=== PATIENT | male | born 1980 | race Caucasian/White ===

== ENCOUNTER 2016-10-02 11:33 | Emergency (ER) | payer OTHER ==
[~2016-10-02] VITALS: Ht 180.3 cm; Wt 81.6 kg
[~2016-10-02 11:33] MED LIST: CIPRO500 M1 PO; CIPROFLOXACIN500 M2 PO; FLAGYL500 MG PO; HYDROMORPHONE HC2 M1 PO; PREDNISONE10 M2 PO
--- NOTE | 2016-10-02 12:33 | ED SKIN/ALLERGY COMPLAINT ---
History of Present Illness General Chief Complaint: General Adult Stated Complaint: BIBA ?ALLERGIC REACTION TO REMECADE Source: patient Exam Limitations: no limitations Allergies Coded Allergies: infliximab (From REMICADE) (Severe, DIFFICULTY BREATHING, HIVES, RASH, FACIAL SWELLING 10/02/16) Reconcile Medications Ciprofloxacin HCl 500 MG TABLET 1 TAB PO BID Crohn's Methylprednisolone. (Medrol) 4 MG TAB.DS.PK 1 DP PO AD ALLERGY 6 on day 1 then reduce by one tablet daily until gone Metronidazole (Flagyl) 500 MG TABLET 1 TAB PO BID Crohn's Triage Note: [facility] FOR ALLERGIC REACTION TO REMICADE. PT RECEIVED REMICADE TREATMENT LAST WEEK AND 4-5 DAYS LATER HAD HIVES AND A RASH. TODAY, PT WAS MEDICATED WITH 25 MG PO OF BENADRYL PRIOR TO REMICADE INFUSION, BUT PT STILL EXPERIENCED HIVES, SCRATCHY THROAT, "THROAT FELT SWOLLEN", AND SWELLING NOTED AROUND PT'S EYES. LUNGS CTA, NO STRIDOR OR RESP DISTRESS NOTED. PT MEDICATED WITH 125 MG OF SOLUMEDROL AND 50 MG OF BENADRYL IV. Triage Nurses Notes Reviewed? yes HPI: 36-year-old man with past medical history significant for Crohn's disease recently admitted to [facility] on 06/12/16-06/14/16 for a Crohn's flare complicated with an abscess treated with intravenous Unasyn. Patient has been treated by front office secretary Dr. Jose Mora for his Crohn's disease for which he has failed therapy on Humira. Recently he was started on Remicade infusions and reports approximately 2 weeks ago he received his first infusion and developed urticaria and hives about 4 days after the infusion. He alerted his primary care provider and his front office secretary to this for which he was instructed to premedicate with Benadryl prior to the next infusion. Today at the infusion center he was given 25 mg of intravenous Benadryl prior to the infusion of the Remicade medication. Approximately 1 hour into the infusion patient certitude develop throat swelling and tightness with associated shortness of breath without any obvious hives, pruritus, rash or hemodynamic instability. Rapid response was called and patient was given another 25 mg of intravenous Benadryl and transferred to the [place] ED for further evaluation. Currently he denies any ache, fever, chills, chest pain, palpitations, shortness of breath, difficulty breathing, cough, nausea, vomiting, diarrhea, rash, itching. (THOMPSON WALLACE MD) Vital Signs & Intake/Output Vital Signs & Intake/Output Vital Signs Date Time Temp Pulse Resp B/P Pulse O2 O2 Flow FiO2 Ox Delivery Rate 10/02 1241 76 15 98 Room Air Room Air 10/02 1144 98 Room Air Room Air 10/02 1135 98.2 90 18 114/80 99 Room Air Past History Travel History Traveled to [place] past 21 day No Medical History Any Pertinent Medical History? see below for history Neurological: NONE EENT: NONE Cardiovascular: NONE Respiratory: NONE Gastrointestinal: Crohn's disease, GERD, h/o bowel perforation and abscess, managed conservatively Hepatic: NONE Renal: NONE Musculoskeletal: NONE Psychiatric: NONE Endocrine: NONE Blood Disorders: NONE Cancer(s): NONE TOOLING ENGINEERING TECH/Reproductive: NONE History of MRSA: No History of VRE: No History of CDIFF: No Surgical History Surgical History: left knee surgery Psychosocial History Who do you live with Family Services at Home None What is your primary language Lithuanian Tobacco Use: Current Daily Use Daily Tobacco Use Amount/Type: => 5 Cigarettes daily ETOH Use: occasional use Illicit Drug Use: denies illicit drug use Family History Family History, If Any: Relation not specified for: FH: Crohn's disease Hx Contributory? Yes (THOMPSON WALLACE MD) Review of Systems Review of Systems Constitutional: Reports: see HPI. (THOMPSON WALLACE MD) Physical Exam Physical Exam General Appearance: well developed/nourished, no apparent distress, alert, awake Comments: General -well-developed, well-nourished young man in no acute distress HEENT - NCAT, PERRL, EOMI, anicteric sclera, no lip/tongue/throat swelling Cardio - S1, S2 w/o murmurs/gallops/rubs Resp -minimal wheezing in all 4 lung dominguez, no crackles GI - soft, nontender, nondistended, bowel sounds present Neuro - Awake and alert, CN II - XII grossly intact Extremities - no edema, pulses intact Skin-no obvious rash, hives, wheals (THOMPSON WALLACE MD) Progress Differential Diagnosis: allergic reaction Comments: Patient received a total of 50 mg of intravenous Benadryl at the infusion center for his apparent allergic reaction to the Remicade infusion. Presently in the ED patient does not have any subjective complaints of shortness of breath, tongue/lip swelling or difficulty breathing. On physical exam he has minimal wheezing, however he is every day smoker. Vital signs are within normal limits and patient is saturating adequately on room air. Patient was also reportedly given Solu-Medrol 125 mg by EMS en route to [facility]. Patient was monitored in the [place] ED for a short time prior to patient insisting on leaving as he reportedly "feels fine". He was encouraged to stay for a short time longer for his own safety. He refused and said he would "come back" if he "gets worse". He was discharged to home with a prescription for a medrol dose pack and instructed to take benadryl daily for the next three days and to follow up with his PCP and front office secretary after discharge and to avoid further exposure to Remicade. (THOMPSON WALLACE MD) Plan of Care: Orders Procedure Date/time Status Clear Liquid Diet 10/02 L Active Current Medications Sig/Dayana Start time Last Medication Dose Stop Time Status Admin Methylprednisolone 125 MG ONCE ONE 10/02 1230 CAN (Solu Medrol) 10/02 1231 Departure Departure Disposition: HOME OR SELF CARE Condition: Stable Clinical Impression Primary Impression: Allergic reaction caused by a drug Qualifiers: Encounter type: initial encounter Qualified Code: T78.40XA - Allergy, unspecified, initial encounter Referrals: PATIENT HAS NO PRIMARY CARE DR (PCP/Family) Departure Forms: Customer Survey General Discharge Information Prescriptions: Current Visit Scripts Methylprednisolone. (Medrol) 1 DP PO AD #1 DP 6 on day 1 then reduce by one tablet daily until gone (THOMPSON WALLACE MD) Resident Co-Sign Statement Statement: ED Attending supervision documentation- [X] I saw and evaluated the patient. I have also reviewed all the pertinent lab results and diagnostic results. I agree with the findings and the plan of care as documented in the Resident's documentation. [] I have reviewed the ED Record and agree with the Resident's documentation. [] Additions or exceptions (if any) to the Resident's note and plan are summarized below: [] (NIKKI CARDENAS,JARAD Ziegler)
[2016-10-02] MEDS ORDERED: MEDROL4 M2 PO (13:41)
[2016-10-02 13:57] VITALS: BP 116/71
== END 2016-10-02 13:58 ==
LOC: ERH 11:33
DX: T39.395A Adverse effect of other nonsteroidal anti-inflammatory drugs [NSAID], initial encounter (principal)